=== PATIENT | male | born 1955 | race Caucasian/White ===

== ENCOUNTER 2019-02-05 08:09 | Day surgery (SDC) | payer MEDICARE, BC ==
[2019-02-04 09:24] VITALS: BMI 29.7
[2019-02-05] MEDS ORDERED: Oxymetazoline HCl 0.05% ( 15 ML ) ONE ×2 (09:09→10:18)
[2019-02-05 09:41] LABS: Hemoglobin 12.2 g/dL (14.0-18.0)
[2019-02-05] MEDS ORDERED: Fentanyl 250 MCG/5 ML VIAL ONE (09:41)
[2019-02-05 10:02] LABS: Anion Gap 11 mmol/L (10-20); BUN (Urea Nitrogen) 14 mg/dL (8.4-25.7); Calc. Creatinine Clearance 140 mL/min (70-130); Calcium 10.2 mg/dL (7.8-10.44); Carbon Dioxide 25 mmol/L (23-31); Chloride 108 mmol/L (98-107); Estimated GFR-MDRD Greater than 90; Glucose 108 mg/dL (80-115); Potassium 4.4 mmol/L (3.5-5.1); Sodium 140 mmol/L (136-145)
[2019-02-05] MEDS ORDERED: Lidocaine 1% w/Epinephrine 1:100K 20 ML VIAL ONE (10:18)
[2019-02-05] MEDS ORDERED: Bacitracin Zinc Ointment 30 gm TUBE ONE (10:18)
[2019-02-05] MEDS ORDERED: Labetalol HCl 100 MG/20 ML VIAL ONE (12:28)
--- NOTE | 2019-02-06 10:29 | OP ---
DATE OF PROCEDURE: 02/05/2019 PREOPERATIVE DIAGNOSES: 1. Chronic rhinosinusitis. 2. Nasal septal deviation. 3. Bilateral inferior turbinate hypertrophy. 4. Nasal obstruction. POSTOPERATIVE DIAGNOSES: 1. Chronic rhinosinusitis. 2. Nasal septal deviation. 3. Bilateral inferior turbinate hypertrophy. 4. Nasal obstruction. PROCEDURES PERFORMED: 1. Bilateral endoscopic sinus surgery, total ethmoidectomies. 2. Bilateral endoscopic sinus surgery, maxillary antrostomies. 3. Bilateral endoscopic sinus surgery, frontal sinusotomies. 4. Bilateral endoscopic sinus surgery, sphenoidotomies. 5. Nasal septoplasty. 6. Bilateral inferior turbinate submucosal resection. ESTIMATED BLOOD LOSS: 20 mL. COMPLICATIONS: None. ANESTHESIA: GETA. PROCEDURE IN DETAIL: Patient was taken to the operating room and placed supine on the table. General endotracheal anesthesia was obtained by the anesthesia staff. Tube was secured in the left lower lip. Patient was then placed in the beach chair position, and Afrin pledgets were placed in the nasal cavity. Injections of 1% lidocaine with 1:100,000 epinephrine were made into the nasal septum as well as the inferior turbinates. Patient was then prepped and draped in standard surgical fashion for nasal surgery. Following this, the Afrin pledgets were removed. A Rene incision was made on the left nasal septum. Submucoperichondrial dissection was performed. The deviated portions of the septum included portions of the cartilage and the bony septum. These isolated areas were removed using 3 cutting rongeurs. There was noted to be a large dorsal and caudal strut, left intact for support of the nose. The mucoperichondrial flaps were then reapproximated using a 4-0 gut stitch. Any straight pieces of cartilage were crushed prior to this and placed between the mucoperichondrial flaps. Following this, the inferior turbinates were then punctured with a submucosal coblation wand, and submucosal coblations were performed of multiple areas of the inferior portion of the anterior inferior turbinate. Following this, a 0-degree endoscope was advanced in the middle meatus. Middle turbinate was identified and was gently medially fractured with a [place] elevator. Following this, the uncinate process was identified and was anteriorly fractured using a ball-ended probe and then was removed bilaterally using the microdebrider and up-biting Blakesley forceps. Following this, the natural maxillary sinus ostia was identified and was gently widened using the curved microdebrider and straight Blakesley forceps bilaterally. Following this, the ethmoidal bulla was identified and was punctured on its medial and inferior aspect using the microdebrider bilaterally. Following this, the ethmoidal bulla was removed along with the anterior ethmoidal cells using the 0-degree microdebrider and up-biting Blakesley forceps. Following this, the grand lamella was identified and was punctured into the posterior ethmoidal cells. Working from posterior to anterior, the ethmoidal cells were opened in a mucosal sparing technique using the 45-degree microdebrider, straight microdebrider, and up-biting Blakesley forceps. Following this, the sphenoid sinus was approached through the previous ethmoidectomies. The superior turbinate and its attachment to the posterior nasal wall was identified bilaterally, staying just medial and inferior to this attachment, a sphenoid sinusotomy was made using the 0-degree microdebrider. The sphenoid sinusotomy was then widened medially and inferiorly with the 0-degree microdebrider. Following this, a 45-degree endoscope was used to visualize the frontal sinus ostia and frontal sinus recess area. This frontal sinus ostia was then widened using the 40-degree microdebrider bilaterally. Following this, the nasal cavity was irrigated. Mirapex was placed within the middle meatus. Guillen splints were placed and secured. The patient tolerated the procedure well. Job ID: [id number]
--- NOTE | 2019-02-07 08:10 | EKG ---
Test Reason : PREOP Blood Pressure : / mmHG Vent. Rate : 057 BPM Atrial Rate : 057 BPM P-R Int : 184 ms QRS Dur : 094 ms QT Int : 426 ms P-R-T Axes : 053 -07 051 degrees QTc Int : 414 ms Sinus bradycardia Cannot rule out Inferior infarct , age undetermined Abnormal ECG No previous ECGs available Confirmed by DR. Hdoa DOE ([id number]) on 02/07/2019 8:09:51 AM Referred By: [email or web address] Confirmed By:DR. Hoda DOE
== END 2019-02-05 13:30 | disposition home or self-care (01) ==
LOC: SDC 08:09
PROVIDERS: ATTEND Otolaryngology Plastic Surgery within the Head & Neck
PROC: 099R8ZZ Drainage of Left Maxillary Sinus, Via Natural or Artificial Opening Endoscopic (ICD-10-PCS; principal; 2019-02-05)
PROC: 099Q8ZZ Drainage of Right Maxillary Sinus, Via Natural or Artificial Opening Endoscopic (ICD-10-PCS; 2019-02-05)
PROC: 09BL8ZZ Excision of Nasal Turbinate, Via Natural or Artificial Opening Endoscopic (ICD-10-PCS; 2019-02-05)
PROC: 09BM8ZZ Excision of Nasal Septum, Via Natural or Artificial Opening Endoscopic (ICD-10-PCS; 2019-02-05)
DX: J32.9 Chronic sinusitis, unspecified (principal); J34.2 Deviated nasal septum; J34.3 Hypertrophy of nasal turbinates; J34.89 Other specified disorders of nose and nasal sinuses; E78.00 Pure hypercholesterolemia, unspecified; F17.200 Nicotine dependence, unspecified, uncomplicated; J45.909 Unspecified asthma, uncomplicated; Z79.82 Long term (current) use of aspirin; Z79.899 Other long term (current) drug therapy; Z88.5 Allergy status to narcotic agent
CPT/HCPCS: 36415; 80048; 85014; 85018; 93005; 93010; J2001; J3010